=== PATIENT | male | born 1990 | race Two or more races ===

== ENCOUNTER 2018-05-03 09:44 | Outpatient (CLI) | payer OTHER | END 2018-05-03 10:03 | disposition home or self-care (01) | LOC: LAB 09:44 | DX: D45 Polycythemia vera (principal); E83.110 Hereditary hemochromatosis; I25.89 Other forms of chronic ischemic heart disease; Z95.5 Presence of coronary angioplasty implant and graft; I10 Essential (primary) hypertension; E78.2 Mixed hyperlipidemia ==

== ENCOUNTER 2018-06-28 08:51 | Outpatient (CLI) | payer OTHER | END 2018-06-28 08:57 | disposition home or self-care (01) | LOC: LAB 08:51 | DX: D50.8 Other iron deficiency anemias (principal) ==

== ENCOUNTER 2018-07-02 07:33 | Outpatient (CLI) | payer OTHER ==
[~2018-07-02] VITALS: Ht 172.7 cm; Wt 63.5 kg
[2018-07-02] MEDS ORDERED: CLARITIN10 MG PO (09:31)
[2018-07-02] MEDS ORDERED: FLONASE16 GM NASAL (09:31)
== END 2018-07-02 07:45 | disposition home or self-care (01) ==
LOC: OFIC 805 07:33
DX: J31.0 Chronic rhinitis (principal); J34.2 Deviated nasal septum; J34.3 Hypertrophy of nasal turbinates; H61.23 Impacted cerumen, bilateral; G47.33 Obstructive sleep apnea (adult) (pediatric); J37.0 Chronic laryngitis

== ENCOUNTER 2018-07-26 10:35 | Outpatient (CLI) | payer OTHER ==
[~2018-07-26 10:35] MED LIST: CLARITIN10 MG PO; FLONASE16 GM NASAL
== END 2018-07-26 10:40 | disposition home or self-care (01) ==
LOC: LAB 10:35
DX: D50.8 Other iron deficiency anemias (principal)

== ENCOUNTER → 2018-07-28 | Outpatient (CLI) | payer OTHER | END | disposition home or self-care (01) | LOC: NUCLEAR 14:17 | DX: I80.222 Phlebitis and thrombophlebitis of left popliteal vein (principal) ==

== ENCOUNTER 2018-08-20 08:11 | Outpatient (CLI) | payer OTHER | END 2018-08-20 15:14 | disposition home or self-care (01) | LOC: LAB 08:11 | DX: E78.2 Mixed hyperlipidemia (principal); D75.1 Secondary polycythemia; G47.33 Obstructive sleep apnea (adult) (pediatric); I25.89 Other forms of chronic ischemic heart disease; Z95.5 Presence of coronary angioplasty implant and graft; I10 Essential (primary) hypertension; E72.11 Homocystinuria; E72.12 Methylenetetrahydrofolate reductase deficiency; D68.32 Hemorrhagic disorder due to extrinsic circulating anticoagulants; D68.51 Activated protein C resistance; D68.52 Prothrombin gene mutation; R74.0 Nonspecific elevation of levels of transaminase and lactic acid dehydrogenase [LDH]; D50.8 Other iron deficiency anemias; D51.8 Other vitamin B12 deficiency anemias; N18.3 Chronic kidney disease, stage 3 (moderate) ==

== ENCOUNTER 2018-08-26 08:01 | Outpatient (CLI) | payer OTHER | END 2018-08-26 08:09 | disposition home or self-care (01) | LOC: SONOGRAMA 08:01 → MAMO-SONO 08:15 | DX: R74.0 Nonspecific elevation of levels of transaminase and lactic acid dehydrogenase [LDH] (principal) ==

== ENCOUNTER 2018-10-01 07:19 | Outpatient (CLI) | payer OTHER ==
[~2018-10-01] VITALS: Ht 152.4 cm; Wt 63.5 kg
[2018-10-01] MEDS ORDERED: FLONASE16 GM NASAL (09:35)
[2018-10-01] MEDS ORDERED: CLARITIN10 MG PO (09:35)
== END 2018-10-01 10:15 | disposition home or self-care (01) ==
LOC: OFIC 805 07:19
DX: E83.111 Hemochromatosis due to repeated red blood cell transfusions (principal); I25.10 Atherosclerotic heart disease of native coronary artery without angina pectoris; D75.1 Secondary polycythemia; Z79.01 Long term (current) use of anticoagulants; J31.0 Chronic rhinitis; J34.2 Deviated nasal septum; J34.3 Hypertrophy of nasal turbinates; G47.39 Other sleep apnea

== ENCOUNTER → 2018-10-25 09:59 | Outpatient (CLI) | payer OTHER | END | disposition home or self-care (01) | LOC: LAB 09:59 | DX: E78.2 Mixed hyperlipidemia (principal); E83.110 Hereditary hemochromatosis; D75.1 Secondary polycythemia; G47.33 Obstructive sleep apnea (adult) (pediatric); I25.89 Other forms of chronic ischemic heart disease; Z95.5 Presence of coronary angioplasty implant and graft; I10 Essential (primary) hypertension ==

== ENCOUNTER 2018-12-27 10:54 | Outpatient (CLI) | payer OTHER | END 2018-12-27 11:00 | disposition home or self-care (01) | LOC: LAB 10:54 | DX: E72.12 Methylenetetrahydrofolate reductase deficiency (principal); E72.11 Homocystinuria; E83.110 Hereditary hemochromatosis; D75.1 Secondary polycythemia; G47.33 Obstructive sleep apnea (adult) (pediatric); I25.89 Other forms of chronic ischemic heart disease; Z95.5 Presence of coronary angioplasty implant and graft; E78.2 Mixed hyperlipidemia; D51.1 Vitamin B12 deficiency anemia due to selective vitamin B12 malabsorption with proteinuria; D51.0 Vitamin B12 deficiency anemia due to intrinsic factor deficiency; E06.3 Autoimmune thyroiditis; E03.8 Other specified hypothyroidism; N18.3 Chronic kidney disease, stage 3 (moderate); R25.8 Other abnormal involuntary movements ==

== ENCOUNTER 2018-12-29 11:06 | Outpatient (CLI) | payer OTHER | END 2018-12-29 11:17 | disposition home or self-care (01) | LOC: LAB 11:06 | DX: N18.3 Chronic kidney disease, stage 3 (moderate) (principal); R25.8 Other abnormal involuntary movements ==

== ENCOUNTER → 2019-02-28 10:25 | Outpatient (CLI) | payer OTHER | END | disposition home or self-care (01) | LOC: LAB 10:25 | DX: E72.12 Methylenetetrahydrofolate reductase deficiency (principal); E72.11 Homocystinuria; E83.110 Hereditary hemochromatosis; D75.1 Secondary polycythemia; G47.33 Obstructive sleep apnea (adult) (pediatric); I25.89 Other forms of chronic ischemic heart disease; Z95.5 Presence of coronary angioplasty implant and graft; I10 Essential (primary) hypertension; E78.2 Mixed hyperlipidemia ==

== ENCOUNTER 2020-12-17 08:22 | Outpatient (CLI) | payer OTHER | END 2020-12-17 08:23 | disposition home or self-care (01) | LOC: LAB 08:22 | PROVIDERS: ATTEND Internal Medicine Hematology & Oncology | DX: D50.8 Other iron deficiency anemias (principal); I10 Essential (primary) hypertension; R74.02 Elevation of levels of lactic acid dehydrogenase [LDH]; K76.89 Other specified diseases of liver; E53.1 Pyridoxine deficiency; E78.2 Mixed hyperlipidemia; E03.8 Other specified hypothyroidism; D68.61 Antiphospholipid syndrome; E72.12 Methylenetetrahydrofolate reductase deficiency; D75.1 Secondary polycythemia; G47.33 Obstructive sleep apnea (adult) (pediatric); Z95.5 Presence of coronary angioplasty implant and graft ==

== ENCOUNTER → 2022-03-12 12:31 | Outpatient (CLI) | payer OTHER | END | disposition home or self-care (01) | LOC: LAB 12:31 | PROVIDERS: ATTEND Internal Medicine Hematology & Oncology | DX: D50.8 Other iron deficiency anemias (principal); R79.9 Abnormal finding of blood chemistry, unspecified; I10 Essential (primary) hypertension; R74.02 Elevation of levels of lactic acid dehydrogenase [LDH]; K76.89 Other specified diseases of liver; D68.59 Other primary thrombophilia; D68.61 Antiphospholipid syndrome; E72.11 Homocystinuria; E83.110 Hereditary hemochromatosis; D75.1 Secondary polycythemia; G47.33 Obstructive sleep apnea (adult) (pediatric); I25.89 Other forms of chronic ischemic heart disease; Z95.5 Presence of coronary angioplasty implant and graft; E78.2 Mixed hyperlipidemia; R10.9 Unspecified abdominal pain; I25.10 Atherosclerotic heart disease of native coronary artery without angina pectoris; N18.4 Chronic kidney disease, stage 4 (severe) ==

== ENCOUNTER 2022-03-12 14:46 | Outpatient (CLI) | payer OTHER | END 2022-03-12 14:58 | disposition home or self-care (01) | LOC: SONOGRAMA 14:46 | DX: N18.4 Chronic kidney disease, stage 4 (severe) (principal) ==

== ENCOUNTER 2022-08-06 09:12 | Outpatient (CLI) | payer OTHER | END 2022-08-06 09:30 | disposition home or self-care (01) | LOC: MRI 09:12 | PROVIDERS: ATTEND Orthopaedic Surgery | DX: M25.562 Pain in left knee (principal) | CPT/HCPCS: 73721 ==

== ENCOUNTER 2024-02-04 08:52 | Outpatient (CLI) | payer OTHER | END 2024-02-04 09:00 | disposition home or self-care (01) | LOC: RAD 08:52 | PROVIDERS: ATTEND Internal Medicine | DX: R05.9 Cough, unspecified (principal) ==